=== PATIENT | male | born 1970 | race Caucasian/White ===

== ENCOUNTER 2016-07-22 14:51 | Emergency (ER) | payer OTHER ==
[~2016-07-22 14:51] MED LIST: ALBUTEROL17 GM INH; ALEVE OTC PRN; AZITHROMYCIN250 MG PO; BACTRIM DS TABL1 TA1 PO; CELEBREX PO; COREG12.5 MG PO; DOXYCYCLINE PO; IBUPROFEN PO; LORTAB 10-5001 EACH PO; NUPRIN200 M1 PO; PHENERGAN/CODEIN5 ML PO; PREDNISONE PO; PROAIR HFA8.5 GM INH; ULTRAM PO; XANAX0.5 M1 PO; ZITHROMAX1 G/PKT PO
[2016-07-22 16:23] LABS: URINE SOURCE CLEAN CATCH
[2016-07-22 16:28] LABS: URINE APPEARANCE CLEAR; URINE BILIRUBIN NEG (NEG); URINE BLOOD NEG (NEG); URINE COLOR YELLOW; URINE GLUCOSE NEG (NEG); URINE KETONE NEG (NEG); URINE LEUKOCYTE ESTERASE NEG (NEG); URINE NITRATE NEG (NEG); URINE PH 5.5 (5-8); URINE PROTEIN NEG (NEG); URINE SPECIFIC GRAVITY 1.008 (1.003-1.035); URINE UROBILINOGEN 0.2 MG/DL (NEG)
[2016-07-22 16:33] LABS: CULTURE INDICATED? NO
[2016-07-26 20:47] LABS: CHLAMYDIA TRACH Not Detected (Not Detected); N GONOR Not Detected (Not Detected)
== END 2016-07-22 17:40 | disposition home or self-care (01) ==
LOC: CED 14:51
DX: A64 Unspecified sexually transmitted disease (principal); I10 Essential (primary) hypertension; F17.210 Nicotine dependence, cigarettes, uncomplicated
CPT/HCPCS: 81003; 87491; 87591; 96372; 99284; J0696